=== PATIENT | female | born 1935 | race Caucasian/White ===

== ENCOUNTER 2017-01-29 07:34 | Emergency (ER) | payer OTHER ==
[~2017-01-29] VITALS: Ht 160 cm; Wt 76.0 kg
[~2017-01-29 07:34] MED LIST: ALPRAZOLAM0.25 M2 PO; ASPIRIN325 MG PO; ATENOLOL25 MG PO; BENADRYL25 MG PO; BISAC-EVAC10 MG PR; BISACODYL5 MG PO; CALTRATE 6001 TABLE1 PO; CELEBREX200 MG PO; CELECOXIB200 MG PO; COUMADIN1 MG PO; FERROUS SULFAT325 MG PO; HYDROCHLOROTHIA50 MG PO; IRON325 M1 PO; LEVOTHYROXINE100 MCG PO; LIDOCAINE700 MG TD; LISINOPRIL10 MG PO; LO-DOSE ASPIRIN81 M1 PO; LUBRICANT EYE3.5 G1 LEFT EYE; LUBRIFRESH PM3.5 GM RIGHT EYE; MILK OF MAGNESI10 ML PO; ONDANSETRON ODT4 MG PO; OXYCODONE HCL5 MG PO; PRAVASTATIN SOD80 MG PO; SENNA-TIME S T1 EACH PO; TYLENOL REGULA325 MG PO; WARFARIN SODIUM1 MG PO
[2017-01-29 08:24] LABS: EOSINOPHIL (%) 0 % (0-5); HEMATOCRIT 39.7 % (36.0-46.0); IMMATURE GRANULOCYTE (%) 0.4 % (0.0-0.7); INSTRUMENT ABS NEUTROPHIL CT 7.8 K/uL; LYMPHOCYTE COUNT 0.8 K/uL (1.0-2.8); MCH 29.5 PG (29.0-34.0); MCV 86.9 FL (83-99); MONOCYTE (%) 4.7 % (3-12); MONOCYTE COUNT 0.4 K/uL (0-0.8); NEUTROPHIL COUNT 7.8 K/uL (1.8-6.4); PLATELET COUNT 291 K/uL (156-360); RBC DIS.WIDTH-CV 12.4 % (11.8-14.6); RBC DIS.WIDTH-SD 39.4 % (39-53); RED BLOOD COUNT 4.57 M/uL (3.80-5.20); WHITE BLOOD COUNT 9.1 K/uL (4.1-10.2)
[2017-01-29 08:33] LABS: CHLORIDE 95 mEq/L (99-109); POTASSIUM 3.5 mEq/L (3.7-5.4); SODIUM 129 mEq/L (136-147)
[2017-01-29 08:36] LABS: GLUCOSE 190 mg/dL (70-99)
[2017-01-29 08:37] LABS: ANION GAP 12 MEQ/L (2-14)
[2017-01-29 08:38] LABS: TOTAL BILIRUBIN 0.9 mg/dL (0.0-1.0)
[2017-01-29 08:39] LABS: ALKALINE PHOSPHATASE 67 IU/L (3-129); GFR ESTIMATE (CALCULATED) > 59 mL/min/
[2017-01-29 08:40] LABS: UREA NITROGEN (BUN) 15 mg/dL (9-23)
[2017-01-29 12:49] LABS: ADD MIUA? YES; BILIRUBIN NEGATIVE; BLOOD NEGATIVE; COLOR YELLOW ((YELLOW)); GLUCOSE (STRIP) NEGATIVE; KETONES 20; LEUKOCYTES NEGATIVE; NITRITE NEGATIVE; PROTEIN (STRIP) 30; SPECIFIC GRAVITY 1.014 (1.000-1.030); UROBILINOGEN 0.2 MG/DL (0.2-1.0)
[2017-01-29 13:00] LABS: BACTERIA RARE /HPF; EPITHELIAL CELLS 1+ /HPF; HYALINE CASTS 0-5 /LPF; MUCUS TRACE /LPF; RED BLOOD CELLS 0-5 /HPF (0-5); UCUL ADDED? NO; WHITE BLOOD CELLS 0-5 /HPF (0-5)
[2017-01-29 13:57] LABS: CHLORIDE 101 mEq/L (99-109); POTASSIUM 3.5 mEq/L (3.7-5.4); SODIUM 132 mEq/L (136-147)
[2017-01-29 13:59] LABS: GLUCOSE 121 mg/dL (70-99)
[2017-01-29 14:00] LABS: ANION GAP 8 MEQ/L (2-14)
[2017-01-29 14:03] LABS: GFR ESTIMATE (CALCULATED) > 59 mL/min/
[2017-01-29 14:04] LABS: UREA NITROGEN (BUN) 12 mg/dL (9-23)
[2017-01-29 15:50] VITALS: BP 142/62
== END 2017-01-29 16:15 | disposition home or self-care (01) ==
LOC: EME 07:34
PROVIDERS: Physician Assistant
DX: E86.0 Dehydration (principal); E87.1 Hypo-osmolality and hyponatremia; R42 Dizziness and giddiness; R11.0 Nausea; R19.7 Diarrhea, unspecified; I10 Essential (primary) hypertension
CPT/HCPCS: 80048 91; 80053; 81003; 85025; 99281; 99285; J7030; J7120